=== PATIENT | male | born 1995 | race Caucasian/White ===

== ENCOUNTER 2016-07-03 21:03 | Emergency (ER) | payer BC, OTHER ==
[~2016-07-03] VITALS: Ht 172.7 cm; Wt 82.7 kg
[~2016-07-03 21:03] MED LIST: ADVIL200 MG PO; BENADRYL25 M2 PO; DILAUDID 2MG TAB2 MG PO; DOXYCYCLINE 10100 MG PO; LEVAQUIN 750MG750 M1 PO; MOTRIN 800800 MG/TAB PO; NORCO 325 MG-51 TAB PO; RT ADVAIR 228 DISKUS IH; VENTOLIN0.09 MG IH; ZOFRAN 4MG T4 MG/TAB PO
[2016-07-03 21:06] VITALS: BP 145/61; PULSE 104; TEMP 98.3
[2016-07-03] MEDS ORDERED: ZOLOFT 25MG25 MG PO (21:40)
[2016-07-03] MEDS ORDERED: ABILIFY5 MG PO (21:40)
[2016-07-03] MEDS ORDERED: PRISTIQ 50 MG T50 MG PO (21:40)
[2016-07-03] MEDS ORDERED: KLONOPIN 1MG1 MG PO (21:40)
[2016-07-03] MEDS ORDERED: ZYRTEC5 MG PO (21:41)
[2016-07-03] MEDS ORDERED: SINGULAIR 110 MG/TAB PO (21:41)
[2016-07-03] MEDS ORDERED: NORCO 325 MG-51 TAB PO (22:30)
== END 2016-07-03 23:25 | disposition home or self-care (01) ==
LOC: COL.ER 21:03
DX: S93.401A Sprain of unspecified ligament of right ankle, initial encounter (principal); X50.9XXA Other and unspecified overexertion or strenuous movements or postures, initial encounter

== ENCOUNTER → 2016-11-12 | Outpatient (CLI) | payer BC, OTHER ==
[~2016-11-12] MED LIST changes: +ABILIFY5 MG PO; +KLONOPIN 1MG1 MG PO; +PRISTIQ 50 MG T50 MG PO; +SINGULAIR 110 MG/TAB PO; +ZOLOFT 25MG25 MG PO; +ZYRTEC5 MG PO
== END ==
LOC: BHSO 10:55
DX: F33.1 Major depressive disorder, recurrent, moderate (principal)
CPT/HCPCS: 90791-AI

== ENCOUNTER → 2016-11-26 | Outpatient (CLI) | payer BC, OTHER | LOC: BHSO 09:41 | DX: F33.1 Major depressive disorder, recurrent, moderate (principal) ==

== ENCOUNTER → 2016-12-26 | Outpatient (CLI) | payer BC | LOC: BHSO 14:53 | DX: F40.10 Social phobia, unspecified (principal) ==

== ENCOUNTER → 2017-07-18 | Outpatient (CLI) | payer BC | LOC: BHSO 09:38 | DX: F41.1 Generalized anxiety disorder (principal) | CPT/HCPCS: G0463 ==

== ENCOUNTER → 2017-08-18 | Outpatient (CLI) | payer BC | LOC: BHSO 09:52 | DX: F33.2 Major depressive disorder, recurrent severe without psychotic features (principal) ==

== ENCOUNTER → 2017-08-22 | Outpatient (CLI) | payer BC | LOC: BHSO 13:28 | DX: F41.1 Generalized anxiety disorder (principal) | CPT/HCPCS: G0463 ==

== ENCOUNTER → 2017-09-15 | Outpatient (CLI) | payer BC | LOC: BHSO 14:48 | DX: F33.2 Major depressive disorder, recurrent severe without psychotic features (principal) ==

== ENCOUNTER → 2017-10-09 | Outpatient (CLI) | payer BC | LOC: BHSO 11:24 | DX: F90.0 Attention-deficit hyperactivity disorder, predominantly inattentive type (principal) | CPT/HCPCS: G0463 ==

== ENCOUNTER → 2017-11-11 | Outpatient (CLI) | payer BC | LOC: BHSO 10:14 | DX: F90.0 Attention-deficit hyperactivity disorder, predominantly inattentive type (principal) | CPT/HCPCS: G0463 ==

== ENCOUNTER 2017-11-19 21:49 | Emergency (ER) | payer BC ==
[~2017-11-19] VITALS: Ht 172.7 cm; Wt 86.4 kg
[2017-11-19 21:54] VITALS: TEMP 97.8
[2017-11-19 22:58] VITALS: BP 128/68
[2017-11-19 23:18] VITALS: PULSE 90
== END 2017-11-19 23:18 | disposition home or self-care (01) ==
LOC: COL.ER 21:49
DX: Z77.020 Contact with and (suspected) exposure to aromatic amines (principal); R11.2 Nausea with vomiting, unspecified; R07.89 Other chest pain; R06.02 Shortness of breath; J45.909 Unspecified asthma, uncomplicated; F41.9 Anxiety disorder, unspecified; F31.9 Bipolar disorder, unspecified; F90.9 Attention-deficit hyperactivity disorder, unspecified type; F17.210 Nicotine dependence, cigarettes, uncomplicated

== ENCOUNTER → 2018-01-13 | Outpatient (CLI) | payer BC | LOC: BHSO 14:13 | DX: F90.0 Attention-deficit hyperactivity disorder, predominantly inattentive type (principal) | CPT/HCPCS: G0463 ==

== ENCOUNTER → 2018-04-14 | Outpatient (CLI) | payer BC | LOC: BHSO 14:36 | DX: F90.0 Attention-deficit hyperactivity disorder, predominantly inattentive type (principal) | CPT/HCPCS: G0463 ==

== ENCOUNTER → 2018-06-30 | Outpatient (CLI) | payer BC | LOC: BHSO 14:52 | DX: F90.0 Attention-deficit hyperactivity disorder, predominantly inattentive type (principal) | CPT/HCPCS: G0463 ==

== ENCOUNTER → 2018-09-01 | Outpatient (CLI) | payer BC | LOC: BHSO 15:17 | DX: F90.0 Attention-deficit hyperactivity disorder, predominantly inattentive type (principal) | CPT/HCPCS: G0463 ==

== ENCOUNTER → 2018-11-16 | Outpatient (CLI) | payer BC | LOC: BHSO 15:41 | DX: F90.0 Attention-deficit hyperactivity disorder, predominantly inattentive type (principal) | CPT/HCPCS: G0463 ==

== ENCOUNTER → 2019-08-17 | Outpatient (CLI) | payer BC | LOC: MHCPAIN 10:19 | DX: R51 Headache (principal); G89.29 Other chronic pain | CPT/HCPCS: G0463 ==

== ENCOUNTER → 2020-01-26 | Outpatient (CLI) | payer BC | LOC: BHSO 09:33 | DX: F90.0 Attention-deficit hyperactivity disorder, predominantly inattentive type (principal) | CPT/HCPCS: G0463 ==